=== PATIENT | female | born 1955 | race Caucasian/White ===

== ENCOUNTER 2018-02-14 08:58 | Day surgery (SDC) | payer OTHER ==
[~2018-02-14] VITALS: Ht 172.7 cm; Wt 95.7 kg
[~2018-02-14 08:58] MED LIST: ASPI-630 PO; BUPR150T8 PO; BYSTOLIC5 MG PO; CALC1TAB79 PO; CETI10TA22 PO; CLINDAMYCIN 600MG PREMIX 50 ML IV PRN; FISH1CAP PO; HYDR25TA9 PO; HYDROmorphone 2 MG/ML VIAL IV PRN; IBUP-1007 PO; IV RINGERS,LACTATED 1000ML 1,000 ML IV SCH; LIDOCAINE 1% PF 2 ML VIAL. ID PRN; LOSA50TA7 PO; MORPHINE SULFATE 2 MG/ML VIAL. IV PRN; MULT1TAB52 PO; ONDANSETRON PF 4 MG/2 ML VIAL. IV PRN; PANT20TA2 PO; PROCHLORPERAZINE 10 MG/2 ML VIAL. IV PRN; SIMV10TA3 PO
[2018-02-14] MEDS ORDERED: CLINDAMYCIN 900MG PREMIX 50 ML IV PRN (09:15)
[2018-02-14] MEDS ORDERED: MIDAZOLAM HCL/PF 2 MG/2 ML VIAL. ONE ×2 (10:16→11:01)
[2018-02-14] MEDS ORDERED: fentaNYL PF VIAL 100 MCG/2 ML VIAL ONE (10:16)
[2018-02-14] MEDS ORDERED: BUPIVAC MPF-EPI 0.5%-1:200000 30 ML VIAL. ONE (10:28)
[2018-02-14] MEDS ORDERED: BUPIVACAINE MPF 0.75% DEXTROSE 2 ML AMPUL. EPID ONE (11:30)
--- NOTE | 2018-02-14 11:39 | DISCH ---
DISCHARGE INSTRUCTIONS Condition on Discharge Condition on Discharge: Stable Activity After Discharge Activity Instructions for Disc: Activity as tolerated (slow advance to normal activities as symptoms allow) Weight Bearing Status after Di: As tolerated Diet after Discharge Diet after Discharge: Regular Wound Incision Care Wound/Incision Care: Ice to area for comfort, Change dressing (May remove dressing in 2 days may then shower) Contacting the after DC Call your doctor for: Concerns you may have Follow-Up Follow up with: Dr. Morgan 1 week ISMAEL MORGAN MD Feb 14, 2018 11:39
[2018-02-14] MEDS ORDERED: HYDR-3165 PO (11:42)
--- NOTE | 2018-02-14 12:00 | PDOC4 ---
Operative Note Operative Note Date of surgery: 02/14/2018 Preoperative diagnosis: Left knee meniscal tear Postoperative diagnosis: Same with radial tear posterior horn medial meniscus and free edge tear lateral meniscus with chondral flap tear medial femoral condyle and grade 3 chondromalacia central facet patella Operative procedure: Left knee arthroscopy partial medial and lateral meniscectomy chondroplasty patella and medial femoral condyle Surgeon: Cathy Assist: Buck Anesthesia: Spinal Estimated blood loss: 5 mL Complications: None Operative indications: Ms Hall is a 62-year-old female with left knee pain ongoing despite nonoperative management. MRI had confirmed the clinical suspicion of a possible meniscal tear. She has sharp stabbing pain particularly with pivoting twisting movements and increased activity. I had gone over with her nonoperative treatment options as well as the structure and function of the meniscus and the significance of the tear. We also went over operative treatments and the fact that the planned partial meniscectomy will address only the mechanical issues. It cannot make the meniscus grow back and any pain associated with degenerative type changes really cannot be undone but only symptomatically treated. All her questions were answered consent was obtained including the possibility of infection continued pain nerve or blood vessel damage medical or other anesthetic consultations among others all her questions were answered and she wishes to proceed with surgical evaluation and treatment. Operative text: Patient was identified procedure verified patient placed in the supine position on the operating table. After adequate amounts of general anesthesia were administered left lower extremity was prepped and draped in standard sterile fashion and after timeout was performed patient procedure identified and verified, the left lower extremity was exsanguinated by Esmarch bandage tourniquet inflated to 350 mmHg a lateral portal was established a medial portal established using spinal he localization and the knee joint was systematically examined. She was noted to have grade 3 chondromalacia of the medial facet of the patella which was trimmed back to stable tissue using arthroscopic shaver was not full-thickness in nature and her patellofemoral tracking was excellent. No loose bodies noted in the gutters or suprapatellar pouch. She did have a displaceable tear posterior horn of the medial meniscus which was trimmed back and radiused appropriately using arthroscopic punch and shaver. She did have a chondral flap tear of the weightbearing surface of medial femoral condyle which was trimmed back to stable tissue using arthroscopic shaver. ACL was probed and found to be intact in the lateral compartment cartilage was noted to be intact however she did have significant free edge fraying of the inner border the lateral meniscus and this was trimmed back to stable tissue with arthroscopic punch and shaver only involving about 10 -15% of the meniscus tissue. Any free cartilage fragments were completely evacuated with the shaver the knee was toured to ensure no other loose bodies or pathology was noted. The knee was drained of arthroscopic fluid injection carried out with have percent plain Marcaine approximately 20 mL portals were closed with nylon suture sterile dressings were applied she was returned to recovery room stable condition having tolerated procedure well toes were noted be warm pink following deflation of tourniquet total tourniquet time proximally 20 minutes ISMAEL GALLOWAY MD Feb 14, 2018 12:00
[2018-02-14] MEDS ORDERED: ROCURONIUM 50 MG/5 ML VIAL. ONE (14:09)
[2018-02-14 15:15] VITALS: BP 112/55
== END 2018-02-14 15:55 | disposition home or self-care (01) ==
LOC: SURG 08:58
PROVIDERS: ATTEND Orthopaedic Surgery
DX: S83.242A Other tear of medial meniscus, current injury, left knee, initial encounter (principal); S83.282A Other tear of lateral meniscus, current injury, left knee, initial encounter; M22.42 Chondromalacia patellae, left knee; I10 Essential (primary) hypertension; K21.9 Gastro-esophageal reflux disease without esophagitis; Z98.890 Other specified postprocedural states; Z88.0 Allergy status to penicillin; Z91.012 Allergy to eggs; Z79.899 Other long term (current) drug therapy; Z88.1 Allergy status to other antibiotic agents; Z88.4 Allergy status to anesthetic agent; Z88.5 Allergy status to narcotic agent; Z91.010 Allergy to peanuts; X50.1XXA Overexertion from prolonged static or awkward postures, initial encounter; Y93.89 Activity, other specified; Y92.89 Other specified places as the place of occurrence of the external cause; Y99.8 Other external cause status
CPT/HCPCS: 29880; A7015; C1782; J2250; J3010; J3490; J7120